=== PATIENT | male | born 1985 | race Caucasian/White ===

== ENCOUNTER 2017-01-30 19:34 | Emergency (ER) ==
[2017-01-30 19:36] VITALS: BP 119/71; TEMP 99.6; BMI 25.1
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
== END 2017-01-30 21:00 | disposition home or self-care (01) ==
LOC: ED 19:34
DX: S16.1XXA Strain of muscle, fascia and tendon at neck level, initial encounter (principal); M54.5 Low back pain; M25.521 Pain in right elbow; V89.2XXA Person injured in unspecified motor-vehicle accident, traffic, initial encounter
CPT/HCPCS: 99283